=== PATIENT | male | born 1955 | race Caucasian/White ===

== ENCOUNTER 2020-08-15 14:52 | Emergency (ER) | payer SELFPAY ==
[2020-08-15 15:47] VITALS: BP 131/85
--- NOTE | 2020-08-15 16:10 | ER Document Report ---
ED Extremity Problem, Upper - General Chief Complaint: Arm Injury Stated Complaint: ARM INJURY Time Seen by Provider: 08/15/20 15:59 Primary Care Provider: [facility] [Provider Group] - Follow up as needed NIDIA AGUIRRE CRNA [Primary Care Provider] - Follow up as needed WILLA BOOKER JR, DO [ACTIVE PROVISIONAL STAFF] - Follow up as needed Mode of Arrival: Wheelchair Information source: Patient Notes: 65-year-old male presented to ED for injury to his left arm 2 weeks ago when he was cutting wood and accidentally cut his arm. He did not go to a doctor until today. He went to the doctor today they sent him over to the x-ray when he went to x-ray there showed a transversely oriented fracture of the distal ulnar diaphysis with a 3 mm of volar displacement. There is a distal fragment noted. There is no other fractures. He was told by the primary care to come to the emergency room to get splinted and then he will need to go to orthopedics. We will put the splint on here and he will need to follow-up with orthopedics. He states that the time he did cut his arm but that is well-healed there is no redness there is no drainage there is no signs of infection. Constitutional: Negative for fever. HENT: Negative for sore throat. Eyes: Negative for visual changes. Cardiovascular: Negative for chest pain. Respiratory: Negative for shortness of breath. Gastrointestinal: Negative for abdominal pain, vomiting or diarrhea. Genitourinary: Negative for dysuria. Musculoskeletal: Pain to the lateral aspect of the left forearm. He states he was feeling much better yesterday then he went to use it and now is hurting bad again. Skin: Negative for rash. Neurological: Negative for headaches, weakness or numbness. 10 point ROS negative except as marked above and in HPI. PHYSICAL EXAMINATION: GENERAL: Well-appearing, well-nourished and in no acute distress. HEAD: Atraumatic, normocephalic. EYES: Pupils equal round extraocular movements intact, conjunctiva are normal. ENT: Nares patent NECK: Normal range of motion LUNGS: No respiratory distress Musculoskeletal: Pain to palpation to the lateral aspect of the left wrist and forearm no swelling no cuts no bruising at this time. NEUROLOGICAL: Normal speech, normal gait. PSYCH: Normal mood, normal affect. SKIN: Warm, Dry, normal turgor, no rashes or lesions noted. - HPI Patient complains to provider of: Left, Forearm, Wrist Onset: Other Recent injury: Yes - 2 weeks ago Where: Home, Outdoors Quality of pain: Sharp, Throbbing Severity of pain: Moderate Pain Level: 4 - With movement but no pain if he holds still Context: Other - Injured with a wood splitter blade about 2 weeks ago Exacerbated by: Movement Relieved by: Rest, Positioning Similar symptoms previously: Yes Recently seen / treated by doctor: Yes - Related Data Allergies/Adverse Reactions: No Known Allergies Allergy (Verified 08/15/20 16:00) Past Medical History - General Information source: Patient - Social History Smoking Status: Unknown if Ever Smoked Lives with: Family Family History: Reviewed & Not Pertinent Patient has suicidal ideation: No Patient has homicidal ideation: No - Past Medical History Cardiac Medical History: Reports: None Pulmonary Medical History: Reports: None EENT Medical History: Reports: None Neurological Medical History: Reports: None Endocrine Medical History: Reports: None Renal/ Medical History: Reports: None Malignancy Medical History: Reports None GI Medical History: Reports: None Musculoskeletal Medical History: Reports Hx Musculoskeletal Trauma Skin Medical History: Reports None Psychiatric Medical History: Reports: None Traumatic Medical History: Reports: Hx Fractures Infectious Medical History: Reports: None Physical Exam - Vital signs Vitals: Temp Pulse Resp BP Pulse Ox 98.1 F 73 20 131/85 H 98 08/15/20 15:46 08/15/20 15:46 08/15/20 15:46 08/15/20 15:46 08/15/20 15:46 Course - Re-evaluation Re-evalutation: 08/15/20 21:10 Seen at urgent care and sent to the hospital to get x-ray of his arm. He cutting wood 2 weeks ago when he injured his arm. He states he had a big laceration at the time but that is healed. He states the arm would not get better so a went to the primary care they x-rayed it. He did have a fracture distal ulnar so he was sent to the emergency room to have a splint put on his arm. Patient was treated with the sugar tong splint. - Vital Signs Vital signs: Temp Pulse Resp BP Pulse Ox 98.1 F 73 20 131/85 H 98 08/15/20 15:46 08/15/20 15:46 11/16/20 15:46 08/15/20 15:46 08/15/20 15:46 - Diagnostic Test Radiology reviewed: Image reviewed, Reports reviewed Procedures - Immobilization Left Arm Time completed: 18:20 Immobilizer type: Sugar tong, Sling Performed by: PCT Post-Proc Neuro Vasc Exam: Normal Alignment checked and good: Yes Discharge - Discharge Clinical Impression: Transverse distal ulnar fracture left Condition: Stable Disposition: HOME, SELF-CARE Additional Instructions: You were seen in the ED today for a transverse oriented fracture of the distal ulnar or a fracture of the lateral aspect of your wrist. There is a 5 mm displacement. We have splinted your arm at this time. You will have to follow- up with orthopedics. It is very important that you follow-up with orthopedics and they will probably place a stone your arm Splint Pending Casting Your injury can't be casted until the swelling has subsided. Therefore, a temporary splint has been placed to protect the injury. Full use of an injured area is not possible in a splint. You should follow the doctor's instructions concerning rest, ice, and elevation of the injury. Never do anything which causes pain under the splint. Keep the splint on ALL THE TIME until you return for casting. If there is unexpected severe pain, or numbness, discoloration, or swelling beyond the splint, you should return at once. Ice & Elevation Apply ice packs frequently against the painful area. Many different schedules are recommended, such as "20 minutes on, 20 minutes off" or "one hour ice, two hours rest." If you need to work, you may need to go longer between ice treatments. You should plan to have the area ice packed AT LEAST one-fourth of the time. The ice should be applied over the wrap, tape, or splint, or over a layer of cloth -- not directly against the skin. Some ice bags have a built-in cloth and can be put directly on the skin. Your injured part should be elevated as much as possible over the next 48 hours. Try to keep the injury above the level of the heart. Avoid use of the injured area. Elevation and rest will decrease the swelling. FOLLOW-UP CARE: If you have been referred to a physician for follow-up care, call the physicians office for an appointment as you were instructed or within the next two days. If you experience worsening or a significant change in your symptoms, notify the physician immediately or return to the Emergency Department at any time for re-evaluation. Forms: Elevated Blood Pressure, Smoking Cessation Education Referrals: NIDIA AGUIRRE CRNA [Primary Care Provider] - Follow up as needed WILLA BOOKER JR, DO [ACTIVE PROVISIONAL STAFF] - Follow up as needed [facility] [Provider Group] - Follow up as needed
== END 2020-08-15 16:00 | disposition home or self-care (01) ==
LOC: ER 14:52
DX: S52.692A Other fracture of lower end of left ulna, initial encounter for closed fracture (principal); W27.8XXA Contact with other nonpowered hand tool, initial encounter; Y93.89 Activity, other specified; Y92.009 Unspecified place in unspecified non-institutional (private) residence as the place of occurrence of the external cause
CPT/HCPCS: 99283

== ENCOUNTER → 2020-08-15 | Outpatient (CLI) | payer SELFPAY ==
--- NOTE | 2020-08-15 14:52 | RADIOLOGY REPORT (SQ) ---
EXAM DESCRIPTION: FOREARM LEFT COMPLETED DATE/TIME: 08/15/2020 2:33 pm REASON FOR STUDY: LACERATION WITHOUT FOREIGN BODY OF LEFT FOREARM, INIT ENCNTR W31.2XXA CONTACT W [employer] MACHINES, S51.812A LACERATION WITHOUT FOREIGN BODY OF LEFT FOREARM, I N M79.602 PAIN IN LEFT ARM COMPARISON: None. NUMBER OF VIEWS: Two views. TECHNIQUE: AP and lateral views of the left forearm are obtained. LIMITATIONS: None. FINDINGS: MINERALIZATION: Normal. BONES: Transversely oriented fracture of the distal ulnar diaphysis with 5 mm of volar displacement of the distal fragment. There is no other fracture. The distal radioulnar joint is intact. SOFT TISSUES: No subcutaneous emphysema or radiopaque foreign body. OTHER: No other findings. IMPRESSION: Transversely oriented fracture of the distal ulnar diaphysis with 5 mm of volar displace ment of the distal fragment. There is no other fracture. The distal radioulnar joint is intact. TECHNICAL DOCUMENTATION: JOB ID: [id number] 2010 [employer]- All Rights Reserved Reading location - IP/workstation name: [email or web address]
== END ==
LOC: RAD 13:48
PROVIDERS: ATTEND Nurse Practitioner Family
DX: S52.692A Other fracture of lower end of left ulna, initial encounter for closed fracture (principal); W31.2XXA Contact with powered woodworking and forming machines, initial encounter; M79.602 Pain in left arm